=== PATIENT | female | born 1960 | race Caucasian/White ===

== ENCOUNTER → 2018-02-05 10:09 | Outpatient (CLI) | payer MEDICARE ==
[2016-07-19 10:02] VITALS: BMI 29.6
[~2018-02-05 10:09] MED LIST: AMBIEN10 MG PO; BROVANA15 MCG/2 M INH; CELEXA20 MG PO; CYCLOBENZAPRINE10 MG PO; FOLIC ACID1 MG PO; HYDROCODONE-APA1 TAB PO; IPRAT-ALBUT 0.5-3 ML UPD; LEVAQUIN750 MG PO; MOBIC7.5 MG PO; MUCINEX DM ER1 EAC1 PO; NEURONTIN 300300 MG PO; NICODERM C1 PATCH .3 TRANSDERM; OSTEO BI-FLEX1 EAC1 PO; PHENERGAN6.25 MG/5 PO; PLAQUENIL200 MG PO; PRINZIDE 20-251 TA1 PO; PROTONIX40 MG PO; PROVENTIL HFA6.7 GM INH; PULMICORT0.5 MG/21 UPD; STERAPRED DS 1210 MG PO; SYMBICORT 80-10.2 GM INH
== END | disposition home or self-care (01) ==
LOC: D.CT 10:09
DX: F17.200 Nicotine dependence, unspecified, uncomplicated (principal)

== ENCOUNTER → 2018-02-28 20:59 | Outpatient (CLI) | payer MEDICARE ==
[2016-07-19 10:02] VITALS: BMI 29.6
== END | disposition home or self-care (01) ==
LOC: D.MAMMO 16:00
DX: Z12.31 Encounter for screening mammogram for malignant neoplasm of breast (principal)

== ENCOUNTER → 2019-06-12 12:41 | Outpatient (CLI) | payer MEDICARE ==
[2016-07-19 10:02] VITALS: BMI 29.6
== END | disposition home or self-care (01) ==
LOC: D.CN 12:41
PROVIDERS: ATTEND Family Medicine
DX: I25.10 Atherosclerotic heart disease of native coronary artery without angina pectoris (principal)

== ENCOUNTER 2019-07-18 19:00 | Outpatient (CLI) | payer MEDICARE ==
[2016-07-19 10:02] VITALS: BMI 29.6
== END 2019-07-18 23:59 | disposition home or self-care (01) ==
LOC: D.MAMMO 19:00
PROVIDERS: ATTEND Family Medicine
DX: Z12.31 Encounter for screening mammogram for malignant neoplasm of breast (principal)